=== PATIENT | female | born 1980 | race African-American/Black ===

== ENCOUNTER 2018-06-17 10:05 | Emergency (ER) | payer MEDICAID ==
[~2018-06-17] VITALS: Ht 182.9 cm; Wt 69.0 kg
[2018-06-17] MEDS ORDERED: FAMOTIDINE 20MG/2ML VIAL IV STA (10:29)
[2018-06-17] MEDS ORDERED: MORPHINE SULFATE 4 MG/ML CPJ (NOT FOR IM USE) IV STA (10:29)
[2018-06-17] MEDS ORDERED: ONDANSETRON HCL 4MG/2ML VIAL IV STA (10:29)
[2018-06-17 10:58] LABS: BASOPHILS % 0.5 % (0.0-2.0); EOSINOPHILS % 2.2 % (0.0-5.0); HEMATOCRIT. 38.5 % (36.0-48.0); HEMOGLOBIN. 12.8 g/dL (12.0-16.0); LYMPHOCYTES % 34.2 % (20.0-50.0); MEAN CORPUSCULAR HEMOGLOBIN 28.7 pg (28.0-32.0); MEAN CORPUSCULAR VOLUME 86.5 fL (81.0-99.0); MEAN PLATELET VOLUME 8.2 fl (7.4-10.4); MONOCYTES % 7.8 % (2.0-8.0); NEUTROPHILS % 55.3 % (40.0-76.0); PLATELET 305 x1000/uL (130-400); RED BLOOD CELL COUNT 4.45 mill/uL (4.2-5.4); RED CELL DISTRIBUTION WIDTH 14.3 % (11.6-14.6)
[2018-06-17 11:00] LABS: CHLORIDE 110 mEq/L (98-107)
[2018-06-17 11:04] LABS: ETHANOL BLOOD < 10 mg/dL
[2018-06-17 11:12] LABS: CLARITY URINE TURBID (CLEAR); COLOR URINE YELLOW (YELLOW); KETONES URINE 1+ (NEGATIVE); LEUKOCYTE ESTERASE URINE NEGATIVE (NEGATIVE); NITRITE URINE POSITIVE (NEGATIVE); OCCULT BLOOD URINE NEGATIVE (NEGATIVE); PROTEIN URINE 1+ (NEGATIVE)
[2018-06-17 11:19] LABS: HCG SCREEN POSITIVE
[2018-06-17] MEDS ORDERED: CEFAZOLIN 1000MG PREMIX 50 ML IV ONE (11:30)
[2018-06-17 11:50] LABS: *AMPHETAMINES SCREEN URINE NEGATIVE (NEGATIVE); *BARBITURATES SCREEN URINE NEGATIVE (NEGATIVE); METHADONE URINE SCREEN NEGATIVE (NEGATIVE); OPIATES URINE SCREEN NEGATIVE (NEGATIVE)
[2018-06-17 11:51] LABS: PHENCYCLIDINE URINE SCREEN NEGATIVE (NEGATIVE)
[2018-06-17 11:56] LABS: *BENZODIAZEPINES SCREEN URINE PRESUMTIVE POSITIVE (NEGATIVE); *COCAINE SCREEN URINE PRESUMTIVE POSITIVE (NEGATIVE); CANNABINOID URINE SCREEN PRESUMTIVE POSITIVE (NEGATIVE)
[2018-06-17] MEDS ORDERED: CEFAZOLIN SODIUM 1000MG/VIAL IM ONE (13:00)
[2018-06-17] MEDS ORDERED: ACETAMINOPHEN WITH CODEINE 300/30MG TABLET PO ONE (13:00)
[2018-06-17] MEDS ORDERED: POTASSIUM CHLORIDE 20MEQ TABLET SR PO ONE (13:30)
[2018-06-17 16:05] VITALS: BP 120/68
== END 2018-06-17 16:05 | disposition home or self-care (01) ==
LOC: ER 10:05
DX: O26.891 Other specified pregnancy related conditions, first trimester (principal); R10.13 Epigastric pain; O99.321 Drug use complicating pregnancy, first trimester; F14.129 Cocaine abuse with intoxication, unspecified; F15.10 Other stimulant abuse, uncomplicated; F12.10 Cannabis abuse, uncomplicated; F17.210 Nicotine dependence, cigarettes, uncomplicated; O99.281 Endocrine, nutritional and metabolic diseases complicating pregnancy, first trimester; E87.8 Other disorders of electrolyte and fluid balance, not elsewhere classified; R11.2 Nausea with vomiting, unspecified; E87.2 Acidosis; O23.41 Unspecified infection of urinary tract in pregnancy, first trimester; O09.521 Supervision of elderly multigravida, first trimester; Z3A.10 10 weeks gestation of pregnancy
CPT/HCPCS: 36415; 76700; 76801; 80053; 80305; 81003; 83690; 84702; 84703; 85025; 86850; 86900; 86901; 96372; 96374; 96375; 99285; G0482; J0690; J2270; J2405; J3490; J7030; Z7610

== ENCOUNTER 2019-12-10 10:11 | Emergency (ER) | payer MEDICAID ==
[~2019-12-10] VITALS: Ht 170.2 cm; Wt 72.0 kg
[2019-12-10 10:17] VITALS: BP 165/97
[2019-12-10] MEDS ORDERED: ONDANSETRON HCL 4MG/2ML INJ IV STA (11:37)
[2019-12-10] MEDS ORDERED: MORPHINE SULFATE 4 MG/ML CPJ (NOT FOR IM USE) IV STA (11:37)
[2019-12-10] MEDS ORDERED: SODIUM CHLORIDE 0.9% 1,000 ML IV ONE (11:37)
[2019-12-10 12:53] LABS: BASOPHILS % 0.6 % (0.0-2.0); EOSINOPHILS % 0.3 % (0.0-5.0); HEMATOCRIT. 42.5 % (36.0-48.0); HEMOGLOBIN. 14.5 g/dL (12.0-16.0); LYMPHOCYTES % 16.1 % (20.0-50.0); MEAN CORPUSCULAR HEMOGLOBIN 30.4 pg (28.0-32.0); MEAN CORPUSCULAR VOLUME 89.3 fL (81.0-99.0); MEAN PLATELET VOLUME 8.1 fl (7.4-10.4); MONOCYTES % 11.5 % (2.0-8.0); NEUTROPHILS % 71.5 % (40.0-76.0); PLATELET 304 x1000/uL (130-400); RED BLOOD CELL COUNT 4.76 mill/uL (4.2-5.4); RED CELL DISTRIBUTION WIDTH 12.7 % (11.6-14.6)
[2019-12-10 13:07] LABS: CHLORIDE 106 mEq/L (98-107)
[2019-12-10 13:25] LABS: HCG SCREEN NEGATIVE
== END 2019-12-10 13:38 | disposition left against medical advice (07) ==
LOC: ER 10:23
DX: R10.9 Unspecified abdominal pain (principal); F17.200 Nicotine dependence, unspecified, uncomplicated
CPT/HCPCS: 36415; 80053; 83690; 84703; 85025; 96361; 96374; 96375; 99284; J2270; J2405; J7030

== ENCOUNTER 2021-12-01 22:35 | Emergency (ER) | payer MEDICAID ==
[~2021-12-01] VITALS: Ht 172.7 cm; Wt 75.0 kg
[2021-12-01 22:58] VITALS: BP 136/92
[2021-12-01] MEDS ORDERED: ONDANSETRON 4MG ODT PO STA (23:39)
[2021-12-01] MEDS ORDERED: HYDROCODONE/ACETAMINOPHEN 5/325MG TABLET PO STA (23:39)
[2021-12-02 00:53] LABS: BASOPHILS % 0.5 % (0.0-2.0); EOSINOPHILS % 0.6 % (0.0-5.0); HEMATOCRIT. 39.3 % (36.0-48.0); HEMOGLOBIN. 12.8 g/dL (12.0-16.0); LYMPHOCYTES % 15.7 % (20.0-50.0); MEAN CORPUSCULAR HEMOGLOBIN 28.8 pg (28.0-32.0); MEAN CORPUSCULAR VOLUME 88.8 fL (81.0-99.0); MEAN PLATELET VOLUME 7.5 fl (7.4-10.4); MONOCYTES % 9.1 % (2.0-8.0); NEUTROPHILS % 74.1 % (40.0-76.0); PLATELET 335 x1000/uL (130-400); RED BLOOD CELL COUNT 4.43 mill/uL (4.2-5.4)
[2021-12-02 01:01] LABS: CHLORIDE 108 mEq/L (98-107)
[2021-12-02 01:17] LABS: HCG SCREEN NEGATIVE
== END 2021-12-02 06:15 | disposition left against medical advice (07) ==
LOC: ER 22:35
DX: R10.2 Pelvic and perineal pain (principal); R11.2 Nausea with vomiting, unspecified; F12.10 Cannabis abuse, uncomplicated; D25.9 Leiomyoma of uterus, unspecified; Z87.11 Personal history of peptic ulcer disease
CPT/HCPCS: 36415; 80053; 84703; 85025; 99283

== ENCOUNTER 2025-09-02 07:14 | Emergency (ER) | payer MEDICAID ==
[~2025-09-02] VITALS: Ht 172.7 cm; Wt 78.0 kg
[2025-09-02 07:24] VITALS: O2SAT 98
[2025-09-02] MEDS: MORPHINE SULFATE 4 MG/ML INJ (FOR IV/IM USE) IV ONE (08:03)
[2025-09-02] MEDS: SODIUM CHLORIDE 0.9% 1,000 ML IV ONE (08:03)
[2025-09-02] MEDS: ONDANSETRON HCL 4MG/2ML INJ IV ONE (08:03)
[2025-09-02 08:26] LABS: BASOPHILS % 0.8 % (0.0-2.0); EOSINOPHILS % 1.8 % (0.0-5.0); HEMATOCRIT. 45.8 % (36.0-48.0); HEMOGLOBIN. 14.5 g/dL (12.0-16.0); LYMPHOCYTES % 41.2 % (20.0-50.0); MEAN PLATELET VOLUME 8.6 fl (7.4-10.4); MONOCYTES % 7.1 % (2.0-8.0); NEUTROPHILS % 49.1 % (40.0-76.0); PLATELET 295 x1000/uL (130-400); RED BLOOD CELL COUNT 5.04 mill/uL (4.2-5.4); RED CELL DISTRIBUTION WIDTH 13.8 % (11.6-14.6)
[2025-09-02 08:57] LABS: CREATININE 0.9 mg/dL (0.6-1.0); UREA NITROGEN BLOOD 7 mg/dL (9-23)
[2025-09-02 08:58] LABS: TROPONIN I HIGH SENSITIVITY < 4 ng/L (3.0-34)
[2025-09-02 08:59] LABS: ASPARTATE AMINOTRANSFERASE 20 IU/L (<34)
[2025-09-02 09:00] LABS: BILIRUBIN DIRECT 0.2 mg/dL (<=3.0); BILIRUBIN TOTAL 0.5 mg/dL (0.1-1.0); PROTEIN TOTAL 8.2 g/dL (6.0-8.3)
[2025-09-02 09:17] LABS: HCG SCREEN NEGATIVE
[2025-09-02 10:08] VITALS: PULSE 46; TEMP 36.5; O2SAT 98
[2025-09-02 10:41] VITALS: BP 143/91; RESP 12
[2025-09-02] MEDS: LIDOCAINE 5% PATCH TOP ONE (10:41)
[2025-09-02 11:31] LABS: CLARITY URINE CLEAR (CLEAR); COLOR URINE YELLOW (YELLOW); SPECIFIC GRAVITY URINE 1.020 (1.005-1.030)
[2025-09-02 11:32] LABS: GLUCOSE URINE NEGATIVE (NEGATIVE); KETONES URINE NEGATIVE (NEGATIVE); LEUKOCYTE ESTERASE URINE NEGATIVE (NEGATIVE); NITRITE URINE POSITIVE (NEGATIVE); OCCULT BLOOD URINE NEGATIVE (NEGATIVE); PH URINE 8.0 (4.5-8.0); PROTEIN URINE NEGATIVE (NEGATIVE); UROBILINOGEN URINE 0.2 E.U./dL (0.2-1.0)
[2025-09-02] MEDS ORDERED: LIDO700A30 TP (11:36)
[2025-09-02] MEDS ORDERED: CEFP200T13 MT (11:36)
[2025-09-02 12:01] LABS: SQUAMOUS EPITHELIAL CELL URINE 1+ /lpf (RARE/1+)
[2025-09-02 12:03] LABS: BACTERIA URINE 4+; WBC URINE 0-2 /hpf (0-2)
[2025-09-02 12:04] LABS: RBC URINE NONE SEEN /hpf (0-2)
== END 2025-09-02 11:50 | disposition home or self-care (01) ==
LOC: ER 07:24
DX: N12 Tubulo-interstitial nephritis, not specified as acute or chronic (principal); R00.1 Bradycardia, unspecified; R10.31 Right lower quadrant pain; R11.2 Nausea with vomiting, unspecified; I10 Essential (primary) hypertension; J45.909 Unspecified asthma, uncomplicated
CPT/HCPCS: 80076; 80048; 81003; 84703; 83690; 83735; 85025; 84484; 36415; 74176; 93005; 96361; 96374; 96375; 99285; J2405; J2270; J7030; Z7610 ×2